=== PATIENT | female | born 1985 | race Caucasian/White ===

== ENCOUNTER 2024-09-13 18:59 | Emergency (ER) | payer BC ==
[2024-09-13 20:11] LABS: BASOPHILS ABSOLUTE AUTO 0.04 K/uL (0.00-0.20); BASOPHILS PERCENT AUTO 0.3 % (0.0-1.0); EOSINOPHILS ABSOLUTE AUTO 0.02 K/uL (0.00-0.45); EOSINOPHILS PERCENT AUTO 0.2 % (0.0-6.0); HEMATOCRIT 36.7 % (37.0-47.0); HEMOGLOBIN 13.3 g/dL (12.0-16.0); IMMATURE GRAN ABSOLUTE AUTO 0.06 K/uL (0.00-0.05); IMMATURE GRAN PERCENT AUTO 0.5 % (0.0-0.4); LYMPHOCYTES ABSOLUTE AUTO 0.68 K/uL (1.00-4.80); LYMPHOCYTES PERCENT AUTO 5.1 % (24.0-44.0); MEAN CORPUSCULAR HEMOGLOBIN 31.4 pg (28.0-32.0); MEAN CORPUSCULAR HGB CONC 36.2 g/dL (32.0-36.0); MEAN CORPUSCULAR VOLUME 86.8 fL (83.0-99.0); MEAN PLATELET VOLUME 9.9 fL (9.4-12.3); MONOCYTES ABSOLUTE AUTO 1.46 K/uL (0.00-0.80); NEUTROPHILS ABSOLUTE AUTO 11.07 K/uL (1.80-7.70); NEUTROPHILS PERCENT AUTO 82.9 % (41.0-71.0); PLATELET COUNT,PLT 293 K/uL (150-400); RED BLOOD CELL COUNT 4.23 M/uL (4.10-5.30); WHITE BLOOD CELL COUNT,WBC 13.33 K/uL (3.9-11.3)
[2024-09-13] MEDS: Sodium Chloride 0.9% 1,000 ML IV ONE (20:13)
[2024-09-13] MEDS: Ondansetron 4 MG/2 ML SDV IVPUSH ONE ×2 (20:14→23:12)
[2024-09-13] MEDS: Sodium Chloride 0.9% 2.5 ML Syringe FLUSH PRN (20:17)
[2024-09-13] MEDS: Sodium Chloride 0.9% 10 ML Syringe FLUSH PRN (20:17)
[2024-09-13 20:28] LABS: BILIRUBIN,URINE NEGATIVE (NEGATIVE); GLUCOSE,URINE NEGATIVE (NEGATIVE); KETONES,URINE NEGATIVE (NEGATIVE); LEUKOCYTE ESTERASE,URINE TRACE (NEGATIVE); NITRITE,URINE POSITIVE (NEGATIVE); OCCULT BLOOD,URINE SMALL (NEGATIVE); PROTEIN,URINE 100 mg/dL (NEGATIVE)
[2024-09-13 20:38] LABS: AMORPHOUS SEDIMENT,URINE FEW (NEGATIVE); APPEARANCE,URINE CLOUDY; BACTERIA,URINE 3+ (NEGATIVE); COLOR,URINE DARK YELLOW; EPITHELIAL CELLS,URINE FEW (NONE-FEW); MUCUS,URINE FEW (NONE-MOD); RBC,URINE 0-3 (0-2/HPF); WBC,URINE 20-27 (0-5/HPF)
[2024-09-13 20:42] LABS: LACTIC ACID 1.7 mmol/L (0.4-2.0)
[2024-09-13 20:47] LABS: A/G RATIO 0.8 (0.9-1.6); ALBUMIN 3.5 g/dL (3.4-5.0); BILIRUBIN TOTAL 0.6 mg/dL (0.2-1.0); CALCIUM 9.2 mg/dL (8.5-10.1); CARBON DIOXIDE,CO2 22.4 mmol/L (21.0-32.0); CREATININE 1.3 mg/dL (0.6-1.0); EST CRCL DRUG DOSING (CG) 64.29 mL/min; MAGNESIUM 1.8 mg/dL (1.8-2.4); POTASSIUM,K 3.3 mmol/L (3.5-5.1); PROTEIN TOTAL,TP 7.7 g/dL (6.4-8.2); TSH ULTRASENSITIVE 1.03 uIU/mL (0.36-3.74)
[2024-09-13] MEDS: Iopamidol 755 MG/ML 500 ML Multipack Bottle IVPUSH ONE (21:07)
[2024-09-13] MEDS: cefTRIAXone 1 GM in Sodium Chloride 0.9% 50 ML IV ONE (21:17)
== END 2024-09-13 23:16 | disposition home or self-care (01) ==
LOC: MW.ED 18:59
DX: N12 Tubulo-interstitial nephritis, not specified as acute or chronic (principal); R79.89 Other specified abnormal findings of blood chemistry; Z90.710 Acquired absence of both cervix and uterus; Z79.899 Other long term (current) drug therapy; Z91.030 Bee allergy status
CPT/HCPCS: 36415; 71046; 74177; 80053; 81001; 83605; 83690; 83735; 84443; 85025; 87040; 96365; 96375; 96376; 99284; J0696; J2405; J3490; J7030; Q9967